=== PATIENT | female | born 1990 | race Caucasian/White ===

== ENCOUNTER 2022-10-28 23:13 | Emergency (ER) | payer OTHER ==
[2022-10-28 23:18] VITALS: BP 147/85; PULSE 113; RESP 20; TEMP 97.8; BMI 26.5
[2022-10-28] MEDS ORDERED: ACETAMINOPHEN 1000 MG/100 ML BAG IVPB ONE (23:54)
[2022-10-28] MEDS ORDERED: ONDANSETRON 4 MG/2 ML VIAL IVPB ONE (23:54)
[2022-10-28] MEDS ORDERED: SODIUM CHLORIDE 0.9% 500 ML INFUS.BAG IV ONE (23:54)
[2022-10-28] MEDS ORDERED: FAMOTIDINE 20 MG/50 ML IVPB 20 MG/50 ML MG IVPB ONE (23:55)
[2022-10-29] MEDS ORDERED: ACETAMINOPHEN INJECTION 100 ML IVPB ONE (00:05)
[2022-10-29] MEDS ORDERED: ONDANSETRON 4 MG/2 ML VIAL ONE (00:19)
[2022-10-29] MEDS ORDERED: FAMOTIDINE 20 MG/50 ML IVPB 20 MG/50 ML MG IVPB ONE (00:19)
[2022-10-29 04:24] LABS: PH,URINE >= 9.0 (5.0-8.0); URINE APPEARANCE CLEAR; URINE BILIRUBIN NEGATIVE (NEGATIVE); URINE COLOR YELLOW; URINE GLUCOSE (UA) NEGATIVE (NEGATIVE); URINE KETONE TRACE (NEGATIVE); URINE LEUK ESTERASE NEGATIVE (NEGATIVE); URINE NITRITE NEGATIVE (NEGATIVE); URINE PROTEIN TRACE (NEGATIVE); URINE UROBILINOGEN 0.2 mg/dL (0.2-1.0)
== END 2022-10-29 04:30 | disposition home or self-care (01) ==
LOC: JER 23:13
PROC: 3E033NZ Introduction of Analgesics, Hypnotics, Sedatives into Peripheral Vein, Percutaneous Approach (ICD-10-PCS; principal; 2022-10-28)
PROC: 3E033GC Introduction of Other Therapeutic Substance into Peripheral Vein, Percutaneous Approach (ICD-10-PCS; 2022-10-28)
PROC: 3E033GC Introduction of Other Therapeutic Substance into Peripheral Vein, Percutaneous Approach (ICD-10-PCS; 2022-10-28)
DX: A09 Infectious gastroenteritis and colitis, unspecified (principal); Z20.822 Contact with and (suspected) exposure to COVID-19
CPT/HCPCS: 0241U-QW; 81003; 84703; 87086; 99284-25

== ENCOUNTER 2024-10-03 23:17 | Emergency (ER) | payer OTHER ==
[2024-10-03 23:37] VITALS: BP 121/78; PULSE 74; RESP 18; TEMP 98.8; BMI 27.4
[2024-10-04] MEDS ORDERED: ALBUTEROL SO4 2.5/IPRATROPIUM 0.5 INH SOL 3 ML VIAL.NEB. NEB ONE (00:01)
[2024-10-04] MEDS: ALBUTEROL SO4 2.5/IPRATROPIUM 0.5 INH SOL 3 ML VIAL.NEB. NEB ONE (00:08)
== END 2024-10-04 00:51 | disposition home or self-care (01) ==
LOC: JER 23:17
PROC: 3E0F7GC Introduction of Other Therapeutic Substance into Respiratory Tract, Via Natural or Artificial Opening (ICD-10-PCS; principal; 2024-10-03)
DX: R05.9 Cough, unspecified (principal); B33.8 Other specified viral diseases; R07.89 Other chest pain; Z20.822 Contact with and (suspected) exposure to COVID-19
CPT/HCPCS: 0241U-QW; 71046-TC-FY; 99284-25

== ENCOUNTER 2025-06-15 06:32 | Day surgery (SDC) | payer OTHER ==
[2025-06-11 13:54] VITALS: BMI 28.0
[2025-06-15] MEDS ORDERED: ROCURONIUM BROMIDE 50 MG/5 ML SYRINGE ONE (08:44)
[2025-06-15] MEDS ORDERED: SUCCINYLCHOLINE CHLORIDE 200 MG/10 ML SYRINGE ONE (08:45)
[2025-06-15] MEDS ORDERED: PROPOFOL 40 ML ONE (08:53)
[2025-06-15] MEDS ORDERED: MIDAZOLAM HCL 2 MG/2 ML SINGLE DOSE VIAL ONE (08:57)
[2025-06-15] MEDS ORDERED: METOCLOPRAMIDE HCL INJECTION 10 MG/2 ML VIAL ONE (08:57)
[2025-06-15] MEDS ORDERED: LIDOCAINE HCL/PF 2% SDV 5ML VIAL ONE (08:57)
[2025-06-15] MEDS ORDERED: ONDANSETRON 4 MG/2 ML VIAL ONE (08:57)
[2025-06-15] MEDS ORDERED: DEXAMETHASONE SOD PHOSPHATE 4 MG/1 ML VIAL ONE (08:57)
[2025-06-15] MEDS ORDERED: PROPOFOL 20 ML ONE (08:58)
[2025-06-15] MEDS ORDERED: SODIUM CHLORIDE 0.9% P/F 10 ML VIAL IJ ONE (09:02)
[2025-06-15] MEDS ORDERED: BUPIVACAINE HCL/PF 0.5% (5MG/ML) 10 ML VIAL ONE (12:16)
[2025-06-15] MEDS ORDERED: ACETAMINOPHEN INJECTION 100 ML ONE (12:31)
[2025-06-15] MEDS ORDERED: KETOROLAC TROMETHAMINE 30 MG/1 ML VIAL ONE (13:25)
[2025-06-15] MEDS ORDERED: SUGAMMADEX SODIUM 200 MG/2 ML VIAL ONE (13:27)
[2025-06-15] MEDS ORDERED: LIDOCAINE HCL 2% JELLY 6 ML TP ONE (13:43)
[2025-06-15] MEDS ORDERED: LIDOCAINE HCL 1%, 10 MG/ML (20ML VIAL) ONE (13:44)
[2025-06-15] MEDS: LIDOCAINE HCL 1%, 10 MG/ML (20ML VIAL) INF ONE (13:47)
[2025-06-15] MEDS ORDERED: LACTATED RINGERS SOLUTION 1,000 ML IV SCH (14:15)
[2025-06-15 18:21] VITALS: BP 111/69; PULSE 71; RESP 18; TEMP 98.4
== END 2025-06-15 18:02 | disposition home or self-care (01) ==
LOC: JASU-SURG 06:32
PROVIDERS: ATTEND Obstetrics & Gynecology
PROC: 0UT74ZZ Resection of Bilateral Fallopian Tubes, Percutaneous Endoscopic Approach (ICD-10-PCS; principal; 2025-06-15 10:15)
PROC: 0UB04ZZ Excision of Right Ovary, Percutaneous Endoscopic Approach (ICD-10-PCS; 2025-06-15 10:15)
DX: Z30.2 Encounter for sterilization (principal); N83.201 Unspecified ovarian cyst, right side
CPT/HCPCS: 86850; 86900; 86901; 88304-TC; 88305-TC; 94760